=== PATIENT | female | born 1995 | race Caucasian/White ===

== ENCOUNTER 2016-04-29 15:19 | Emergency (ER) | payer MEDICAID ==
[2016-04-29] MEDS ORDERED: OPTIRAY 350 100 ML VIAL HMH IV ONE (16:21)
[2016-04-29] MEDS ORDERED: ONDANSETRON 4 MG VIAL ONE (17:43)
[2016-04-29] MEDS ORDERED: SODIUM CHLORIDE 0.9% 1,000 ML ONE (17:43)
== END 2016-04-29 21:21 | disposition home or self-care (01) ==
LOC: ER 16:20
DX: A04.7 Enterocolitis due to Clostridium difficile (principal); K29.00 Acute gastritis without bleeding; N30.90 Cystitis, unspecified without hematuria
CPT/HCPCS: 36415; 74022; 74177; 80053; 81001; 83690; 84703; 85025; 85379; 87045; 87046; 87088; 87493; 93005; 96361; 96374